=== PATIENT | female | born 1980 | race Caucasian/White ===

== ENCOUNTER 2016-12-23 09:42 | Emergency (ER) | payer OTHER ==
--- NOTE | 2016-12-23 10:16 | UC ---
Complaint Female HPI - History Of Current Complaint Chief Complaint: UCGU Stated Complaint: URINARY/HIGH BLOOD SUGAR Time Seen by Provider: 12/23/16 09:50 Hx Obtained From: Patient Onset/Duration: Lasting Days Timing: Constant Severity Initially: Moderate Severity Currently: Moderate - Allergies/Home Medications Allergies/Adverse Reactions: Allergies Allergy/AdvReac Type Severity Reaction Status Date / Time Metformin Allergy Diarrhea Verified 12/23/16 10:16 Home Medications: Home Medications NK [No Home Medications Reported] 12/23/16 [History Confirmed 12/23/16] PMH/Surg Hx/FS Hx/Imm Hx Previously Healthy: Yes Endocrine History: Diabetes Review of Systems Constitutional: Negative Skin: Negative Eyes: Negative ENT: Negative Respiratory: Negative Cardiovascular: Negative Gastrointestinal: Negative Genitourinary: Frequency, Urgency Motor: Negative Neurovascular: Negative Musculoskeletal: Negative Neurological: Negative Psychological: Negative All Other Systems Reviewed And Are Negative: Yes Physical Exam Triage Information Reviewed: Yes Vital Signs Reviewed: Yes Eye Exam: Normal ENT Exam: Normal Dental Exam: Normal Neck exam: Normal Neck: Positive: 1 Respiratory Exam: Normal Cardiovascular Exam: Normal Abdominal Exam: Normal Musculoskeletal Exam: Normal Neurological Exam: Normal Psychological Exam: Normal Skin Exam: Normal Complaint Female Dx - Differential Dx/Diagnosis Provider Diagnoses: HYPERGLYCEMIA (BLOOD SUGAR > 350) Discharge - Discharge Plan Condition: Stable Disposition: OTHER Discharge Disposition Comment: PATIENT SUGGESTED TO GO TO THE ER FOR ELEVATED BLOOD GLUCOSE > 350. Patient Education Materials: Dysuria (ED) Referrals: Mili Davis MD [Medical Doctor] - Additional Instructions: PATIENT SUGGESTED TO GO TO THE ER FOR ELEVATED BLOOD GLUCOSE > 350. [facility] WILL TRANSPORT THE PATIENT.
[2016-12-23 10:25] VITALS: BP 142/87
== END 2016-12-23 10:39 ==
LOC: UCCORT 09:42
DX: E11.65 Type 2 diabetes mellitus with hyperglycemia (principal); Z88.8 Allergy status to other drugs, medicaments and biological substances; R35.0 Frequency of micturition; R39.15 Urgency of urination
CPT/HCPCS: 81003; 87086; 99202; G0463

== ENCOUNTER 2018-01-29 16:32 | Emergency (ER) | payer OTHER ==
[2018-01-29 16:55] VITALS: BP 118/74
--- NOTE | 2018-01-29 17:12 | UC ---
Complaint Female HPI - HPI Summary HPI Summary: 37 year old female presents with 2 day history of dysuria, frequency, urgency, vaginal itching, and thick, white, "cottage cheese-like" vaginal discharge. Reports history of frequent UTIs and vaginal yeast infections. Has appointment with urology Feb 23. Denies fever,chills, abdominal pain, flank pain, nausea, or vomiting. - History Of Current Complaint Chief Complaint: UCGU Stated Complaint: URINARY Time Seen by Provider: 01/29/18 17:04 Hx Obtained From: Patient Onset/Duration: Gradual Onset, Lasting Days - 2 Severity Currently: Moderate Pain Intensity: 7 Character: Burning Aggravating Factor(s): Urination Associated Signs And Symptoms: Positive: Vaginal Discharge. Negative: Fever, Nausea, Vomiting(# Of Episodes =), Genital Swelling, Genital Blisters - Allergies/Home Medications Allergies/Adverse Reactions: Allergies Allergy/AdvReac Type Severity Reaction Status Date / Time metformin AdvReac Diarrhea Verified 01/29/18 16:52 PMH/Surg Hx/FS Hx/Imm Hx Previously Healthy: Yes - Denies significant PMH - Surgical History Surgical History: Yes Surgery Procedure, Year, and Place: Hysterectomy. - Family History Known Family History: Positive: Non-Contributory - Social History Occupation: Unemployed Lives: With Family Alcohol Use: None Substance Use Type: None Smoking Status (MU): Never Smoked Tobacco - Immunization History Most Recent Influenza Vaccination: not yet 2017 Review of Systems All Other Systems Reviewed And Are Negative: Yes Constitutional: Negative: Fever, Chills Gastrointestinal: Negative: Abdominal Pain, Vomiting, Diarrhea, Nausea Genitourinary: Positive: Dysuria, Frequency, Urgency, Vaginal/Penile Itching, Vaginal/Penile Discharge. Negative: Hematuria Is Patient Immunocompromised?: No Physical Exam Triage Information Reviewed: Yes Appearance: No Pain Distress, Obese Vital Signs: Initial Vital Signs Temp 98 F 01/29/18 16:50 Pulse 98 01/29/18 16:50 Resp 18 01/29/18 16:50 BP 118/74 01/29/18 16:50 Pulse Ox 98 01/29/18 16:50 Vital Signs Reviewed: Yes Respiratory: Positive: Lungs clear, Normal breath sounds, No respiratory distress Cardiovascular: Positive: RRR, No Murmur Abdomen Description: Positive: Nontender, No Organomegaly, Soft. Negative: CVA Tenderness (R), CVA Tenderness (L), Distended, Guarding Bowel Sounds: Positive: Present Neurological: Positive: Alert Skin Exam: Normal Complaint Female Dx - Course Course Of Treatment: 37 year old female presents with 2 day history of dysuria, frequency, urgency, vaginal itching and discharge. Reports frequent UTIs and vaginal yeast infections. States OTC topical yeast treatments are not effective. She has appointment with urology 02/23/2018 for evaluation of her frequent infections. Afebrile. Exam unremarkable. POC UA 2+ glucose, 1+ ketones , and trace leukocyte esterase. Will treat for UTI with Macrobid BID x 5 days, pyridium TID x 2 days for discomfort, and provide Diflucan 1 tab today and may repeat in 3 days if symptoms persist for the vaginal yeast infection. She is to follow up with PCP in 5 days if symptoms persist. Warning symptoms reviewed. Verbalizes understanding and agrees with POC. - Differential Dx/Diagnosis Differential Diagnosis/HQI/PQRI: Urinary Tract Infection Provider Diagnoses: acute urinary cystitis, vaginal yeast infection Discharge - Sign-Out/Discharge Documenting (check all that apply): Patient Departure All imaging exams completed and their final reports reviewed: No Studies - Discharge Plan Condition: Stable Disposition: HOME Prescriptions: Fluconazole 150 MG (NF) [Diflucan 150 mg (NF)] 150 mg PO ONCE #2 tab Nitrofurantoin Monohyd/M-Cryst [Macrobid 100 mg Capsule] 100 mg PO BID #10 cap Phenazopyridine TAB* [Pyridium 100 mg TAB*] 100 mg PO TID #6 tab Patient Education Materials: Urinary Tract Infection in Women (ED), Yeast Infection (ED) Referrals: Juana Smith PA [Primary Care Provider] - 5 Days (If symptoms persist.) Additional Instructions: Your urine test in the clinic today is suggestive of a urinary tract infection. We will start you on an antibiotic and send the urine for culture to see what bacteria grow and make sure that the antibiotic prescribed is appropriate for treatment. Start Macrobid (nitrofurantoin) 1 tab twice a day for 5 days. Take Pyridium 1 tablet every 8 hours for the next 2 days to help with the discomfort. Be aware that this medication will cause her urine to turn and orange color. Take Diflucan 1 tab today. May repeat in 3 days if symptoms persist. Make sure you're drinking plenty of fluids. Make sure you are using the bathroom frequently and emptying her bladder completely each time. Wipe from front to back to avoid introducing bacteria into the urinary tract. You should urinate immediately after any sexual intercourse. Follow-up with your primary care provider if your symptoms persist. Seek immediate medical attention in the emergency room if you develop a fever greater than 100.5 F, have severe abdominal pain, persistent vomiting, or any worsening of symptoms. - Billing Disposition and Condition Condition: STABLE Disposition: Home
== END 2018-01-29 17:23 | disposition home or self-care (01) ==
LOC: UCCORT 16:32
DX: N30.00 Acute cystitis without hematuria (principal); B37.3 Candidiasis of vulva and vagina; Z88.8 Allergy status to other drugs, medicaments and biological substances
CPT/HCPCS: 81003; 87086; 99212; G0463

== ENCOUNTER 2018-03-19 09:00 | Emergency (ER) | payer OTHER ==
[2018-03-19 10:10] VITALS: BP 138/86
--- NOTE | 2018-03-19 10:17 | UC ---
Complaint Female HPI - HPI Summary HPI Summary: 37 y/o female presents to the urgent care c/o frequency and burning on urination associated w/ a vaginal discharge w/ a lot of itchiness for the past 2 days. pt reports she has PMHX of DM type II and recurrent Hx of UTI's and candidiasis She couldn't get an appt today with her PCP. When she develops these symptoms it can be either a UTI or a yeast infection. Pain on urination is 6/10 associated w/ lower back pain today. Pt denies fever, flank pain, Hx of STD's, SOB, chest pain, abdominal pain, N/V/D or vaginal bleeding. Pt w/ Hx of hysterectomy. - History Of Current Complaint Chief Complaint: UCGU Stated Complaint: URINARY COMPLAINT Time Seen by Provider: 03/19/18 10:11 Hx Obtained From: Patient ?: No - Hx of Hysteretomy Onset/Duration: Gradual Onset, Lasting Days - 2 days, Still Present, Worse Since - today Timing: Lasting Days - 2 days Severity Initially: Mild Severity Currently: Moderate Pain Intensity: 6 Pain Scale Used: 0-10 Numeric Character: Burning Aggravating Factor(s): Urination Associated Signs And Symptoms: Positive: Back Pain - lower back pain, Vaginal Bleeding/Discharge - white. Hx of recurrent Candidiasis. Negative: Fever, Nausea, Vomiting(# Of Episodes =), Genital Swelling Related Hx: Similar Episode/Dx as: - Candidiasis - Risk Factors Ectopic Risk Factor: Negative Ovarian Torsion Risk Factor: Negative - Allergies/Home Medications Allergies/Adverse Reactions: Allergies Allergy/AdvReac Type Severity Reaction Status Date / Time metformin AdvReac Diarrhea Verified 01/29/18 16:52 Home Medications: Home Medications Insulin REGULAR(*) 1 each INJ DAILY 03/19/18 [History Confirmed 03/19/18] PMH/Surg Hx/FS Hx/Imm Hx - Additional Past Medical History Additional PMH: Hx of Vulbovaginal Candidiasis Previously Healthy: Yes Endocrine History: Diabetes - Surgical History Surgical History: Yes Surgery Procedure, Year, and Place: Hysterectomy. - Family History Known Family History: Positive: Cardiac Disease, Hypertension, Diabetes, Non- Contributory - Social History Occupation: Employed Full-time Lives: With Family Alcohol Use: None Substance Use Type: None Smoking Status (MU): Never Smoked Tobacco - Immunization History Most Recent Influenza Vaccination: not yet 2017 Review of Systems All Other Systems Reviewed And Are Negative: Yes Constitutional: Positive: Negative Skin: Positive: Negative Eyes: Positive: Negative ENT: Positive: Negative Respiratory: Positive: Negative Cardiovascular: Positive: Negative Gastrointestinal: Positive: Negative Genitourinary: Positive: Dysuria, Frequency, Urgency, Vaginal/Penile Burning, Vaginal/Penile Discharge - white Motor: Positive: Negative Neurovascular: Positive: Negative Musculoskeletal: Positive: Negative Neurological: Positive: Negative Psychological: Positive: Negative Is Patient Immunocompromised?: No Physical Exam - Summary Physical Exam Summary: VITAL SIGNS: Reviewed. GENERAL: Patient is a well developed and nourished obese female who is sitting comfortable in the examining table. Patient is not in any acute respiratory distress. HEAD AND FACE: No signs of trauma. No ecchymosis, hematomas or skull depressions. No sinus tenderness. EYES: PERRLA, EOMI x 2, No injected conjunctiva, clear watery eyes, no nystagmus. No photophobia. EARS: Hearing grossly intact. Ear canals and tympanic membranes are within normal limits. MOUTH: pharynx with no erythema, no exudates,no palatal petechiae. no B/L tonsillar enlargement Uvula in midline. NECK: Supple, trachea is midline, no lymphadenopathy, no JVD, no carotid bruit, no c-spine tenderness, neck with full ROM. CHEST: Symmetric, no tenderness at palpation LUNGS: Clear to auscultation bilaterally. No wheezing or crackles. CVS: Regular rate and rhythm, S1 and S2 present, no murmurs or gallops appreciated. ABDOMEN: Soft, non-tender. No signs of distention. No rebound no guarding, and no masses palpated. Bowel sounds are normal. Pelvic exam: Pt declined examination BACK:no scoliosis or lesions, non tender to palpation, No B/L CVA tenderness EXTREMITIES: FROM in all major joints, no edema, no cyanosis or clubbing. NEURO: Alert and oriented x 3. No acute neurological deficits. Speech is normal and follows commands. SKIN: Dry and warm Triage Information Reviewed: Yes Vital Signs: Initial Vital Signs Temp 97.9 F 03/19/18 10:05 Pulse 90 03/19/18 10:05 Resp 16 03/19/18 10:05 BP 138/86 03/19/18 10:05 Pulse Ox 98 03/19/18 10:05 Complaint Female Dx - Course Course Of Treatment: 37 y/o female presents to the urgent care c/o frequency and burning on urination associated w/ a vaginal discharge w/ a lot of itchiness for the past 2 days. pt reports she has PMHX of DM type II and recurrent Hx of UTI's and candidiasis She couldn't get an appt today with her PCP. When she develops these symptoms it can be either a UTI or a yeast infection. Pain on urination is 6/10 associated w/ lower back pain today. Pt denies fever, flank pain, Hx of STD's, SOB, chest pain, abdominal pain, N/V/D or vaginal bleeding. Pt w/ Hx of hysterectomy.Hx obtained PE: WNL. Pt declined pelvic examination. UA results:Glucose 2+,ketones 2+, Blood trace+, Leukoesterase 1+. Pt is hemodynamically stable. Pt probably w/ Vulvovaginal candidiasis. However she also requests treatment for UTI. Pt Rx Fluconalzoe PO , Bactrim PO and Pyridium 100mg PO as directed below. Pt strongly advised to increase hydration since Ketones present and srongly advised to f/u w/ her PCP as soon as possible for furthe management in her DM. Urine sent for culture if any abnormality Pt will be notified for further treatment. Pt strongly advised if she develops dizziness, N/V/ to go inmediately to the ER for further managment. D/C intructions explained. Pt understood and agreed. Left the clinic ambulating. - Differential Dx/Diagnosis Differential Diagnosis/HQI/PQRI: Cervicitis, , Sexually Transmitted Disease, Ureteral Stone, Urinary Tract Infection Provider Diagnosis: UTI (urinary tract infection), Dysuria, Vulvovaginal candidiasis Discharge - Sign-Out/Discharge Documenting (check all that apply): Patient Departure - D/c home All imaging exams completed and their final reports reviewed: No Studies - Discharge Plan Condition: Stable Disposition: HOME Prescriptions: Fluconazole 150 MG TAB* [Diflucan 150 MG TAB*] 150 mg PO ONCE #3 tablet Phenazopyridine TAB* [Pyridium 100 mg TAB*] 100 mg PO TID #6 tab Sulfamethox/Trimethoprim DS* [Bactrim DS 800/160 TAB*] 1 tab PO BID #14 tab Patient Education Materials: Urinary Tract Infection in Women (ED), Yeast Infection (ED) Referrals: Juana Smith PA [Primary Care Provider] - 3 Days Additional Instructions: 1- Please take Bactrim 100mg PO x 7 days. Pyridium 100 mg PO TID x 2 days to alleviate urinary symptoms. Increase increase fluid intake. drink cranberry juice. 2-Urine sent for culture if any abnormality, you will be notified for further treatment. PLEASE INCREASE HYDRATION. 3- Take fluconazole PO as directed / If not improvement of symptoms please f/u w / your ENGINEERING PROGRAMMER in 3 days for further evaluation and treatment - Billing Disposition and Condition Condition: STABLE Disposition: Home
== END 2018-03-19 10:42 | disposition home or self-care (01) ==
LOC: UCCORT 09:00
DX: N39.0 Urinary tract infection, site not specified (principal); R30.0 Dysuria; B37.3 Candidiasis of vulva and vagina; E11.9 Type 2 diabetes mellitus without complications; Z87.442 Personal history of urinary calculi; Z79.4 Long term (current) use of insulin; Z88.8 Allergy status to other drugs, medicaments and biological substances
CPT/HCPCS: 81003; 87086; 99212; G0463

== ENCOUNTER 2018-07-18 17:54 | Emergency (ER) | payer OTHER ==
[2018-07-18 18:12] VITALS: BP 121/79
--- NOTE | 2018-07-18 18:22 | UC ---
Complaint Female HPI - HPI Summary HPI Summary: Pt c/o genital swelling itching, tenderness X 3-4 days. Pt has vaginal yeast infections frequently. Pt has DM2 that was managed by insulin, is no longer using insulin, still has elevated glucose, does not like to take metformin because it gives her diarrhea. Pt states that her genital area is very sore and can not wear regular underwear but wears men's boxers for comfort. Pt is very frustrated with regard to the frequent vaginal yeast infections. - History Of Current Complaint Chief Complaint: UCGU Stated Complaint: URINARY, PERSONAL Time Seen by Provider: 07/18/18 17:58 Hx Obtained From: Patient ?: No Onset/Duration: Gradual Onset, Lasting Days, Still Present Timing: Constant Severity Initially: Moderate Severity Currently: Severe Pain Intensity: 7 Character: Burning Aggravating Factor(s): Movement, Urination Alleviating Factor(s): Nothing Associated Signs And Symptoms: Positive: Vaginal Discharge, Genital Swelling - Risk Factors Ovarian Torsion Risk Factor: Hysterectomy - Allergies/Home Medications Allergies/Adverse Reactions: Allergies Allergy/AdvReac Type Severity Reaction Status Date / Time metformin AdvReac Diarrhea Verified 05/07/18 21:00 PMH/Surg Hx/FS Hx/Imm Hx Previously Healthy: Yes Endocrine History: Diabetes - unmanaged - Surgical History Surgical History: Yes Surgery Procedure, Year, and Place: Hysterectomy. - Family History Known Family History: Positive: Cardiac Disease, Hypertension, Diabetes, Non- Contributory - Social History Occupation: Employed Full-time Lives: With Family Alcohol Use: None Substance Use Type: None Smoking Status (MU): Never Smoked Tobacco Have You Smoked in the Last Year: No - Immunization History Most Recent Influenza Vaccination: not yet 2017 Review of Systems All Other Systems Reviewed And Are Negative: Yes Constitutional: Positive: Negative Skin: Positive: Other - erythema, mild skin breakdown on inner thigh, pt c/o pruritic skin outer labia and inneer thighs. ENT: Positive: Negative Respiratory: Positive: Negative Cardiovascular: Positive: Negative Gastrointestinal: Positive: Negative Genitourinary: Positive: Vaginal/Penile Itching, Vaginal/Penile Discharge Motor: Positive: Negative Musculoskeletal: Positive: Negative Neurological: Positive: Negative Psychological: Positive: Negative Is Patient Immunocompromised?: No Physical Exam Triage Information Reviewed: Yes Appearance: Well-Appearing, Obese Vital Signs: Initial Vital Signs Temp 97.9 F 07/18/18 18:07 Pulse 100 07/18/18 18:07 Resp 16 07/18/18 18:07 BP 121/79 07/18/18 18:07 Pulse Ox 100 07/18/18 18:07 Vital Signs Reviewed: Yes Eye Exam: Normal ENT Exam: Normal ENT: Positive: Hearing grossly normal Dental Exam: Other - missing teeth Neck exam: Normal Respiratory Exam: Normal Respiratory: Positive: No respiratory distress Pelvic Exam: Positive: Other - pt had hysterectomy Musculoskeletal Exam: Normal Neurological Exam: Normal Psychological Exam: Normal Skin Exam: Other - erythema, mild skin breakdown on inner thighs, pt c/o pruritic skin outer labia and inner thighs. Complaint Female Dx - Course Course Of Treatment: Pt was advised to f/u with PCP with regard to glycosuria and recurrent vaginal and skin yeast infections - Differential Dx/Diagnosis Differential Diagnosis/HQI/PQRI: Urinary Tract Infection Provider Diagnosis: Vaginitis and vulvovaginitis, unspecified, Glycosuria Discharge - Sign-Out/Discharge Documenting (check all that apply): Patient Departure All imaging exams completed and their final reports reviewed: No Studies - Discharge Plan Condition: Stable Disposition: HOME Prescriptions: Fluconazole 150 MG (NF) [Diflucan 150 mg (NF)] 150 mg PO DAILY #3 tab Miconazole TOPICAL CREAM 2%* [Monistat 2%*] 1 applic TOPICAL DAILY #1 tube Patient Education Materials: Basic Carbohydrate Counting (DC), Vaginitis (ED) Referrals: [facility] [place] [facility] [Outside] Juana Smith PA [Primary Care Provider] - As Soon As Possible Additional Instructions: PLEASE SEEK CARE WITH YOUR PCP FOR THE FINDING OF GLUCOSE IN YOUR URINE. - Billing Disposition and Condition Condition: STABLE Disposition: Home
== END 2018-07-18 18:55 | disposition home or self-care (01) ==
LOC: UCCORT 17:54
DX: N76.0 Acute vaginitis (principal); R81 Glycosuria; E66.9 Obesity, unspecified; Z88.8 Allergy status to other drugs, medicaments and biological substances
CPT/HCPCS: 81003; 87480; 87510; 99212; G0463

== ENCOUNTER 2018-10-02 12:48 | Emergency (ER) | payer OTHER ==
[2018-10-02 13:02] VITALS: BP 141/97
--- NOTE | 2018-10-02 13:13 | UC ---
Complaint Female HPI - HPI Summary HPI Summary: 38-year-old female who gets frequent yeast infections and states that she has another one with whitish discharge and vaginal itchiness. She is a diabetic however is unable to afford her insulin. She states her blood sugars range about 150-200. She is not presently sexually active. She states this is her typical yeast infection. - History Of Current Complaint Chief Complaint: UCGU Stated Complaint: PERSONAL Time Seen by Provider: 10/02/18 12:51 Hx Obtained From: Patient ?: No Onset/Duration: Gradual Onset Timing: Constant Severity Initially: Mild Severity Currently: Mild Pain Intensity: 6 Character: Not Applicable Aggravating Factor(s): Nothing Alleviating Factor(s): Nothing Associated Signs And Symptoms: Positive: Vaginal Discharge - White discharge typical of her normal yeast infection with vaginal itching. Related Hx: Similar Episode/Dx as: - Vaginal candidiasis. - Allergies/Home Medications Allergies/Adverse Reactions: Allergies Allergy/AdvReac Type Severity Reaction Status Date / Time metformin AdvReac Diarrhea Verified 10/02/18 12:57 PMH/Surg Hx/FS Hx/Imm Hx Previously Healthy: Yes Endocrine History: Diabetes - Surgical History Surgical History: Yes Surgery Procedure, Year, and Place: Hysterectomy. - Family History Known Family History: Positive: Cardiac Disease, Hypertension, Diabetes, Non- Contributory - Social History Alcohol Use: None Substance Use Type: None Smoking Status (MU): Never Smoked Tobacco Have You Smoked in the Last Year: No - Immunization History Most Recent Influenza Vaccination: not yet 2017 Review of Systems All Other Systems Reviewed And Are Negative: Yes Genitourinary: Positive: Vaginal/Penile Itching, Vaginal/Penile Discharge - Whitish discharge typical with her history of yeast infections. Is Patient Immunocompromised?: No Physical Exam Triage Information Reviewed: Yes Appearance: Well-Appearing, No Pain Distress, Well-Nourished Vital Signs: Initial Vital Signs Temp 98.4 F 10/02/18 12:57 Pulse 108 10/02/18 12:57 Resp 17 10/02/18 12:57 BP 141/97 10/02/18 12:57 Pulse Ox 97 10/02/18 12:57 Vital Signs Reviewed: Yes Respiratory: Positive: Lungs clear, Normal breath sounds, No respiratory distress, No accessory muscle use Cardiovascular: Positive: RRR, No Murmur, Pulses Normal, Brisk Capillary Refill Abdomen Description: Positive: Nontender, No Organomegaly, Soft. Negative: CVA Tenderness (R), CVA Tenderness (L) Bowel Sounds: Positive: Present Musculoskeletal Exam: Normal Neurological Exam: Normal Psychological Exam: Normal Skin Exam: Normal Complaint Female Dx - Course Course Of Treatment: Patient is comfortable here and to give her a dose of Diflucan and a refill for that because of her frequent yeast infections. She does have an appointment with her primary care provider to establish new care in about 3 weeks from now. She's also follow-up with her PROGRAM DIR physician if no improvement in 3 or 4 days. - Differential Dx/Diagnosis Provider Diagnosis: Vaginal yeast infection Discharge - Sign-Out/Discharge Documenting (check all that apply): Patient Departure All imaging exams completed and their final reports reviewed: No Studies - Discharge Plan Condition: Fair Disposition: HOME Prescriptions: Fluconazole 150 MG TAB* [Diflucan 150 MG TAB*] 150 mg PO UC ONCE 1 Days #1 tablet Patient Education Materials: Yeast Infection (ED) Referrals: Juana Smith PA [Primary Care Provider] - Additional Instructions: Keep your appointment with your primary care provider for your diabetic control. Exercises regularly. Follow-up with your PROGRAM DIR provider if no improvement in 3 or 4 days. - Billing Disposition and Condition Condition: FAIR Disposition: Home
== END 2018-10-02 13:18 | disposition home or self-care (01) ==
LOC: UCCORT 12:48
DX: B37.3 Candidiasis of vulva and vagina (principal); E11.9 Type 2 diabetes mellitus without complications; Z91.14 Patient's other noncompliance with medication regimen
CPT/HCPCS: 99212; G0463

== ENCOUNTER 2018-11-12 16:06 | Emergency (ER) | payer OTHER ==
[2018-11-12 17:02] VITALS: BP 120/78
--- NOTE | 2018-11-12 17:53 | UC ---
Complaint Female HPI - HPI Summary HPI Summary: c/o burning, itching and discharge from her vagina for the past 2 days. Denies fever or blood in urine. Pt states she is a Type 2 insulin dependent diabetic and has not been using her insulin b/c "I haven't needed it". Last time she had any insulin was "2-3 weeks ago. - History Of Current Complaint Chief Complaint: UCGU Stated Complaint: POSSIBLE UTI Time Seen by Provider: 11/12/18 16:50 Hx Obtained From: Patient ?: No Onset/Duration: Sudden Onset, Lasting Days Timing: Constant Severity Initially: Moderate Severity Currently: Moderate Pain Intensity: 7 Associated Signs And Symptoms: Positive: Vaginal Discharge - Allergies/Home Medications Allergies/Adverse Reactions: Allergies Allergy/AdvReac Type Severity Reaction Status Date / Time metformin AdvReac Diarrhea Verified 11/12/18 17:02 PMH/Surg Hx/FS Hx/Imm Hx Previously Healthy: No Endocrine History: Diabetes, Dyslipidemia - Surgical History Surgical History: Yes Surgery Procedure, Year, and Place: Hysterectomy. - Family History Known Family History: Positive: Cardiac Disease, Hypertension, Diabetes, Non- Contributory - Social History Alcohol Use: None Substance Use Type: None Smoking Status (MU): Never Smoked Tobacco Have You Smoked in the Last Year: No - Immunization History Most Recent Influenza Vaccination: not yet 2017 Review of Systems All Other Systems Reviewed And Are Negative: Yes Genitourinary: Positive: Dysuria Is Patient Immunocompromised?: No Physical Exam Triage Information Reviewed: Yes Appearance: Well-Appearing, Pain Distress, Obese Vital Signs: Initial Vital Signs Temp 98.1 F 11/12/18 16:57 Pulse 94 11/12/18 16:57 Resp 16 11/12/18 16:57 BP 120/78 11/12/18 16:57 Pulse Ox 98 11/12/18 16:57 Vital Signs Reviewed: Yes Eye Exam: Normal ENT Exam: Normal Dental Exam: Normal Neck exam: Normal Respiratory Exam: Normal Respiratory: Positive: Chest non-tender, Lungs clear, Normal breath sounds Cardiovascular Exam: Normal Cardiovascular: Positive: RRR, No Murmur, Pulses Normal Abdominal Exam: Normal Abdomen Description: Positive: Nontender, No Organomegaly, Soft Bowel Sounds: Positive: Present Musculoskeletal Exam: Normal Neurological Exam: Normal Psychological Exam: Normal Skin Exam: Normal Complaint Female Dx - Course Course Of Treatment: hx obtained, exam performed ,meds reviewed, UA shows +2 glucose in the urine, Blood glucose was not able to obtained, error states high lipid level in the blood. patient refused blood work and refused going to ER. She is asymptomatic, and is attempting to get follow up with [facility]. she states that she stopped taking her insulin 2 weeks ago because her blood sugar readings have been under 200, which she states was told she need not need to take the insulin due to her "good" readings. she denies any thirst, increased urination, dizziness, lightheadedness, chest pain. will restart her insulin regimen tonight and follow up in ER if she develops any worsening symptoms. - Differential Dx/Diagnosis Differential Diagnosis/HQI/PQRI: Urinary Tract Infection Provider Diagnosis: Elevated random blood glucose level, Glucosuria, Vaginitis Discharge ED - Sign-Out/Discharge Documenting (check all that apply): Patient Departure All imaging exams completed and their final reports reviewed: No Studies - Discharge Plan Condition: Stable Disposition: HOME Prescriptions: Fluconazole [Diflucan 150 MG (NF)] 150 mg PO WEEKLY #2 tab Patient Education Materials: Diabetic Hyperglycemia (ED), Diabetes and Exercise (ED), Yeast Infection (ED) Referrals: Juana Smith PA [Primary Care Provider] - Additional Instructions: 1. resume your insulin regimen. 2. Follow up with [facility]. 3 your glucose reading was higher than the monitor would read. I did recommend that you follow up in the ER, if you develop any increased in urination, thirst, dizzyness, lightheadedness or chest pain. However as we discussed, it is important to keep taking the insulin. 3. Take the medication for the vaginitis as prescribed. - Billing Disposition and Condition Condition: STABLE Disposition: Home
== END 2018-11-12 17:50 | disposition home or self-care (01) ==
LOC: UCCORT 16:06
DX: R73.09 Other abnormal glucose (principal); R81 Glycosuria; N76.0 Acute vaginitis; E11.9 Type 2 diabetes mellitus without complications; Z79.84 Long term (current) use of oral hypoglycemic drugs; Z91.14 Patient's other noncompliance with medication regimen; Z88.8 Allergy status to other drugs, medicaments and biological substances
CPT/HCPCS: 81003; 99212; G0463

== ENCOUNTER 2019-02-17 14:21 | Emergency (ER) | payer OTHER ==
[2019-02-17 14:56] VITALS: BP 133/83
--- NOTE | 2019-02-17 15:12 | UC ---
Complaint Female HPI - HPI Summary HPI Summary: Pt presents with c/o genital swelling, burning and itching. Pt thinks she has a UTI or vaginal yeast. Pt us a diabetic and is unsure what type of insulin or how much she takes. Pt states her diabetes is well under control. She did not reveal to the RN that she was an a diabetic and did not wish to up date her medication list in our EHR. - History Of Current Complaint Chief Complaint: UCGU Stated Complaint: URINARY Time Seen by Provider: 02/17/19 14:59 Hx Obtained From: Patient ?: No Onset/Duration: Sudden Onset, Lasting Days, Still Present Timing: Constant Severity Initially: Mild Severity Currently: Moderate Pain Intensity: 7 Character: Dull, Burning Aggravating Factor(s): Urination Alleviating Factor(s): Nothing Associated Signs And Symptoms: Positive: Vaginal Discharge, Genital Swelling Related Hx: Similar Episode/Dx as: - vaginal yeast infection - Risk Factors Ectopic Risk Factor: Negative Ovarian Torsion Risk Factor: Negative - Allergies/Home Medications Allergies/Adverse Reactions: Allergies Allergy/AdvReac Type Severity Reaction Status Date / Time metformin AdvReac Diarrhea Verified 02/17/19 14:52 PMH/Surg Hx/FS Hx/Imm Hx Previously Healthy: Yes Endocrine History: Diabetes Cardiovascular History: Cardiac Disease - Surgical History Surgical History: Yes Surgery Procedure, Year, and Place: Hysterectomy. - Family History Known Family History: Positive: Cardiac Disease, Hypertension, Diabetes, Non- Contributory - Social History Occupation: Unemployed Lives: With Family Alcohol Use: None Substance Use Type: None Smoking Status (MU): Never Smoked Tobacco Have You Smoked in the Last Year: No - Immunization History Most Recent Influenza Vaccination: not yet 2017 Review of Systems All Other Systems Reviewed And Are Negative: Yes Constitutional: Positive: Negative Skin: Positive: Other - swelling and tenderness in vaginal and outer genital area Eyes: Positive: Negative ENT: Positive: Negative Respiratory: Positive: Negative, Shortness Of Breath Gastrointestinal: Positive: Negative Genitourinary: Positive: Dysuria, Frequency, Vaginal/Penile Burning, Vaginal/ Penile Itching, Vaginal/Penile Discharge, Vaginal/Penile Tenderness Motor: Positive: Negative Neurovascular: Positive: Negative Musculoskeletal: Positive: Negative Neurological: Positive: Negative Psychological: Positive: Negative Is Patient Immunocompromised?: No Physical Exam Triage Information Reviewed: Yes Appearance: Well-Appearing Vital Signs: Initial Vital Signs Temp 97.8 F 12/08/19 14:52 Pulse 97 02/17/19 14:52 Resp 16 02/17/19 14:52 BP 133/83 02/17/19 14:52 Pulse Ox 98 02/17/19 14:52 Vital Signs Reviewed: Yes Eye Exam: Normal ENT Exam: Normal Dental Exam: Normal Neck exam: Normal Respiratory Exam: Normal Cardiovascular Exam: Normal Musculoskeletal Exam: Normal Neurological Exam: Normal Psychological Exam: Normal Skin Exam: Normal Complaint Female Dx - Course Course Of Treatment: Pt refused python web developer exam. - Differential Dx/Diagnosis Differential Diagnosis/HQI/PQRI: Urinary Tract Infection Provider Diagnosis: Vaginitis Discharge ED - Sign-Out/Discharge Documenting (check all that apply): Patient Departure All imaging exams completed and their final reports reviewed: No Studies - Discharge Plan Condition: Stable Disposition: HOME Prescriptions: Fluconazole 150 MG TAB* [Diflucan 150 MG TAB*] 150 mg PO DAILY #5 tablet Patient Education Materials: Vaginitis (ED) Referrals: Juana Smith PA [Primary Care Provider] - If Needed - Billing Disposition and Condition Condition: STABLE Disposition: Home - Attestation Statements Provider Attestation: I was available for consult. This patient was seen by the KAVITHA. The patient was not presented to , seen by or examined by ms -Rafaela Cooper MD
== END 2019-02-17 15:35 | disposition home or self-care (01) ==
LOC: UCCORT 14:21
DX: N76.0 Acute vaginitis (principal); E11.9 Type 2 diabetes mellitus without complications; Z88.8 Allergy status to other drugs, medicaments and biological substances; Z90.710 Acquired absence of both cervix and uterus
CPT/HCPCS: 81003; 87086; 99212; G0463